=== PATIENT | male | born 1945 | race Caucasian/White ===

== ENCOUNTER 2018-09-18 17:36 | Inpatient (IN) | payer OTHER ==
[~2018-09-18] VITALS: Ht 182.9 cm; Wt 83.0 kg
[~2018-09-18 17:36] MED LIST: AMOX1TAB61 PO; ASCO500T3 PO; ASPI325T8 PO; ATOR40TA PO; BUDE10.2 IH; CHOL200074 PO; CLIN300C8 PO; GARL100T PO; GLUC1CAP48 PO; HYDR-2761 PO; LYSI500T PO; MULT-208 PO; OCUVITE SOFTGE1 EACH PO; OMEP20TA63 PO; SAW450CA7 PO; TIOT18CA IH; UBID200C7 PO; VITA1TAB49 PO; ZOLP5TAB PO
[2018-09-18 19:00] VITALS: BP 123/78
--- NOTE | 2018-09-18 19:00 | NUR ---
The patient, TITUS SHEPHERD, 73 y/o, M admitted by YARELI IRBY MD, was given written information regarding hospital policies, unit procedures and contact persons. Pt. was a direct admit from Dr. Irby's office. Pt. c/o of abdominal pain mainly when he ambulates. Ct done. Vital signs are stable and pt. is afebrile. Pt. accompanied by his , she has his valuables. Pt. is NPO @ midnight. Will continue to monitor.
[2018-09-18] MEDS ORDERED: HYDROmorphone 2 MG/ML VIAL IV PRN (19:15)
[2018-09-18] MEDS ORDERED: guaiFENesin DM 200MG/20MG 10 ML SYRUP PO PRN (19:15)
--- NOTE | 2018-09-18 19:23 | PDOC1 ---
History and Physical Date of Admission Date of Admission DATE: 09/18/18 TIME: 19:16 Identification/Chief Complaint Chief Complaint abdominal pain, cough Source Source: Patient History of Present Illness History of Present Illness Fernandez is a 73 yo gentleman three plus months post op ileo-colic resection for a perforated ileal diverticulum with abscess. Last week he played some golf and has had some abdominal pain he thought might be 2/2 pulled muscle. The pain worsened over the last couple of days, and he has had some fever. He was seen in the office earlier today, sent for a CT which showed some pneumoperitoneum. He is admitted for evaluation of same Past Medical History Cardiovascular: Hyperlipidemia CENTRAL NERVOUS SYSTEM: TIA, TIA GI: GERD Heme/Onc: No pertinent hx Hepatobiliary: No pertinent hx Psych: No pertinent hx Musculoskeletal: low back pain, Osteoarthritis Rheumatologic: No pertinent hx Infectious disease: No pertinent hx Renal/: No pertinent hx Endocrine: No pertinent hx Past Surgical History Past Surgical History: Appendectomy, Hernia Repair, Other (ileo-colic resection May of 2018) Family History Family History: Coronary Artery Disease, High Cholestrol, Adopted Social History ALCOHOL: none Drugs: None Current Medications Current Medications Current Medications Sodium Chloride 1,000 ml @ 100 mls/hr Q10H IV ; Start 09/18/18 at 19:07 Acetaminophen (Tylenol) 500 mg PRN Q4HRS PRN PO MILD PAIN / TEMP; Start at 19:15 Hydromorphone HCl (Dilaudid) 0.5 mg PRN Q3HRS PRN IV pain; Start 09/18/18 at 19: 15 Guaifenesin (Robitussin Dm) 10 ml PRN Q6HRS PRN PO COUGH; Start 09/18/18 at 19: 15; Status UNV Active Scripts Active Hydrocodone-Apap 5-325 (Hydrocodone Bit/Acetaminophen) 1 Each Tablet 1 Tab PO PRN Q6HRS PRN Reported Ambien (Zolpidem Tartrate) 5 Mg Tablet 1 Tab PO PRN QHS PRN L-Lysine (Lysine) 500 Mg Tablet 500 Mg PO DAILY Aspirin 325 Mg Tablet 1 Tab PO DAILY Ocuvite Softgel (Vit C/Vit E/Lutein/Min/[place]-3) 1 Each Capsule 1 Each PO DAILY Co Q-10 (Ubidecarenone) 200 Mg Capsule 200 Mg PO DAILY Vitamin D-3 (Cholecalciferol (Vitamin D3)) 2,000 Unit Capsule 3,000 Unit PO DAILY Ascorbic Acid 500 Mg Tablet 500 Mg PO DAILY B Complete (Vitamin B Complex) 1 Each Tablet 1 Each PO DAILY [place] ([place] Fruit) 450 Mg Capsule 2 Cap PO DAILY Garlic 100 Mg Tablet 100 Mg PO DAILY Glucosamine & Chondroitin Cap (Gluc 2KCL/Chondr/[place] Hy/Hy Ac) 1 Each Capsule 2 Each PO DAILY Multi-Day Vitamins (Multivitamin) 1 Each Tablet 1 Tab PO DAILY Prilosec Otc (Omeprazole Magnesium) 20 Mg Tablet.dr 1 Tab PO QODAY Symbicort 160-4.5 Mcg Inhaler (Budesonide/Formoterol Fumarate) 10.2 Gm Hfa.aer.ad 2 Puff IH BID Spiriva (Tiotropium [place]) 18 Mcg Cap.w.dev 1 Cap IH DAILY Lipitor (Atorvastatin Calcium) 40 Mg Tablet 1 Tab PO QHS Allergies Allergies: Coded Allergies: Penicillins (Verified Allergy, Intermediate, Hives, 06/21/18) Tolerates amoxicillin, ZOSYN ROS General: YES: Other (fever) Respiratory: YES: Cough Gastrointestinal: Yes Abdominal Pain Physical Exam General: Alert, Oriented X3, No acute distress HEENT: Atraumatic Lungs: Other (occasional ronchi) Abdomen: Soft, Other (diffusely TTP) Skin: Other (warm, dry) Labs Labs PND Images Images CXR and CT of abd/pelvis done earlier are reviewed VTE Prophylaxis Ordered VTE Prophylaxis Devices: Yes VTE Pharmacological Prophylaxi: No Assessment/Plan Assessment/Plan abdominal pain with CT evidence of some pneumoperitoneum hx of perforated distal ileal diverticulum with abscess baseline labs, serial exams YARELI ALEXANDER MD Sep 18, 2018 19:23
[2018-09-18 19:42] LABS: BASO % 0 % (0-3); EOS # 0.1 x10^3/uL (0.0-0.7); EOS % 0 % (0-3); HEMATOCRIT 43.9 % (39.0-53.0); HEMOGLOBIN 14.5 g/dL (13.0-17.5); LYMPH # 1.2 x10^3/uL (1.0-4.8); LYMPH % 8 % (24-48); MEAN CORPUSCULAR HEMOGLOBIN 28 pg (25-35); MEAN CORPUSCULAR HGB CONC 33 g/dL (31-37); MEAN CORPUSCULAR VOLUME 85 fL (79-100); MONO # 1.1 x10^3/uL (0.0-1.1); MONO % 7 % (0-9); NEUT # 12.7 x10^3uL (1.8-7.7); NEUT % 85 % (31-73); PLATELET COUNT 253 x10^3/uL (140-400); RED BLOOD COUNT 5.15 x10^6/uL (4.30-5.70); RED CELL DISTRIBUTION WIDTH 14.2 % (11.5-14.5)
[2018-09-18 19:52] LABS: CALCIUM 8.9 mg/dL (8.5-10.1); CREATININE 1.2 mg/dL (0.7-1.3); GFR 59.3; POTASSIUM 4.3 mmol/L (3.5-5.1)
[2018-09-18 19:56] LABS: % BANDS 2 % (0-9); % LYMPHS 12 % (24-48); % MONOS 5 % (0-10); % SEGS 81 % (35-66); PLT ESTIMATE ADEQUATE (ADEQUATE)
[2018-09-18] MEDS: IV NORMAL SALINE 1000ML BAG 1,000 ML IV SCH (20:42)
[2018-09-18 23:00] VITALS: BP 125/66
[2018-09-18] MEDS ORDERED: ZOLPIDEM 5 MG TABLET. PO PRN (23:15)
[2018-09-19 03:00] VITALS: BP 121/65
[2018-09-19 03:20] LABS: BASO # 0.1 x10^3/uL (0.0-0.2); BASO % 1 % (0-3); EOS % 0 % (0-3); HEMATOCRIT 40.5 % (39.0-53.0); HEMOGLOBIN 13.2 g/dL (13.0-17.5); LYMPH # 1.4 x10^3/uL (1.0-4.8); LYMPH % 10 % (24-48); MEAN CORPUSCULAR HEMOGLOBIN 28 pg (25-35); MEAN CORPUSCULAR HGB CONC 33 g/dL (31-37); MEAN CORPUSCULAR VOLUME 86 fL (79-100); MONO # 1.2 x10^3/uL (0.0-1.1); MONO % 9 % (0-9); NEUT % 80 % (31-73); PLATELET COUNT 247 x10^3/uL (140-400); RED BLOOD COUNT 4.69 x10^6/uL (4.30-5.70); RED CELL DISTRIBUTION WIDTH 14.2 % (11.5-14.5); WHITE BLOOD COUNT 13.7 x10^3/uL (4.0-11.0)
[2018-09-19 07:00] VITALS: BP 112/71
[2018-09-19] MEDS: IV NORMAL SALINE 1000ML BAG 1,000 ML IV SCH ×3 (09:09→20:56)
--- NOTE | 2018-09-19 10:26 | PDOC ---
SHAUNA ENGEL ILLUMINATOR 09/19/18 1026: SURGICAL PROGRESS NOTE Subjective pain is about the same no emesis Vital Signs Vital Signs Date Time Temp Pulse Resp B/P (MAP) Pulse Ox O2 Delivery O2 Flow Rate FiO2 09/19/18 07:05 Room Air 09/19/18 07:00 98.1 92 16 112/71 (85) 96 98.1 General: Alert, Oriented X3, Cooperative, No acute distress Abdomen: Soft, Other (TTP mid abdomen ) Labs Laboratory Tests Test 09/18/18 19:30 09/19/18 02:30 White Blood Count 15.0 x10^3/uL (4.0-11.0) 13.7 x10^3/uL (4.0-11.0) Red Blood Count 5.15 x10^6/uL (4.30-5.70) 4.69 x10^6/uL (4.30-5.70) Hemoglobin 14.5 g/dL (13.0-17.5) 13.2 g/dL (13.0-17.5) Hematocrit 43.9 % (39.0-53.0) 40.5 % (39.0-53.0) Mean Corpuscular Volume 85 fL (79-100) 86 fL (79-100) Mean Corpuscular Hemoglobin 28 pg (25-35) 28 pg (25-35) Mean Corpuscular Hemoglobin Concent 33 g/dL (31-37) 33 g/dL (31-37) Red Cell Distribution Width 14.2 % (11.5-14.5) 14.2 % (11.5-14.5) Platelet Count 253 x10^3/uL (140-400) 247 x10^3/uL (140-400) Neutrophils (%) (Auto) 85 % (31-73) 80 % (31-73) Lymphocytes (%) (Auto) 8 % (24-48) 10 % (24-48) Monocytes (%) (Auto) 7 % (0-9) 9 % (0-9) Eosinophils (%) (Auto) 0 % (0-3) 0 % (0-3) Basophils (%) (Auto) 0 % (0-3) 1 % (0-3) Neutrophils # (Auto) 12.7 x10^3uL (1.8-7.7) 11.0 x10^3uL (1.8-7.7) Lymphocytes # (Auto) 1.2 x10^3/uL (1.0-4.8) 1.4 x10^3/uL (1.0-4.8) Monocytes # (Auto) 1.1 x10^3/uL (0.0-1.1) 1.2 x10^3/uL (0.0-1.1) Eosinophils # (Auto) 0.1 x10^3/uL (0.0-0.7) 0.0 x10^3/uL (0.0-0.7) Basophils # (Auto) 0.0 x10^3/uL (0.0-0.2) 0.1 x10^3/uL (0.0-0.2) Segmented Neutrophils % 81 % (35-66) Band Neutrophils % 2 % (0-9) Lymphocytes % 12 % (24-48) Monocytes % 5 % (0-10) Platelet Estimate Adequate (ADEQUATE) Sodium Level 135 mmol/L (136-145) Potassium Level 4.3 mmol/L (3.5-5.1) Chloride Level 99 mmol/L (98-107) Carbon Dioxide Level 25 mmol/L (21-32) Anion Gap 11 (6-14) Blood Urea Nitrogen 14 mg/dL (8-26) Creatinine 1.2 mg/dL (0.7-1.3) Estimated GFR (Cockcroft-Gault) 59.3 Glucose Level 136 mg/dL (70-99) Lactic Acid Level 1.2 mmol/L (0.4-2.0) Calcium Level 8.9 mg/dL (8.5-10.1) Laboratory Tests Test 09/18/18 19:30 09/19/18 02:30 White Blood Count 15.0 x10^3/uL (4.0-11.0) 13.7 x10^3/uL (4.0-11.0) Red Blood Count 5.15 x10^6/uL (4.30-5.70) 4.69 x10^6/uL (4.30-5.70) Hemoglobin 14.5 g/dL (13.0-17.5) 13.2 g/dL (13.0-17.5) Hematocrit 43.9 % (39.0-53.0) 40.5 % (39.0-53.0) Mean Corpuscular Volume 85 fL (79-100) 86 fL (79-100) Mean Corpuscular Hemoglobin 28 pg (25-35) 28 pg (25-35) Mean Corpuscular Hemoglobin Concent 33 g/dL (31-37) 33 g/dL (31-37) Red Cell Distribution Width 14.2 % (11.5-14.5) 14.2 % (11.5-14.5) Platelet Count 253 x10^3/uL (140-400) 247 x10^3/uL (140-400) Neutrophils (%) (Auto) 85 % (31-73) 80 % (31-73) Lymphocytes (%) (Auto) 8 % (24-48) 10 % (24-48) Monocytes (%) (Auto) 7 % (0-9) 9 % (0-9) Eosinophils (%) (Auto) 0 % (0-3) 0 % (0-3) Basophils (%) (Auto) 0 % (0-3) 1 % (0-3) Neutrophils # (Auto) 12.7 x10^3uL (1.8-7.7) 11.0 x10^3uL (1.8-7.7) Lymphocytes # (Auto) 1.2 x10^3/uL (1.0-4.8) 1.4 x10^3/uL (1.0-4.8) Monocytes # (Auto) 1.1 x10^3/uL (0.0-1.1) 1.2 x10^3/uL (0.0-1.1) Eosinophils # (Auto) 0.1 x10^3/uL (0.0-0.7) 0.0 x10^3/uL (0.0-0.7) Basophils # (Auto) 0.0 x10^3/uL (0.0-0.2) 0.1 x10^3/uL (0.0-0.2) Segmented Neutrophils % 81 % (35-66) Band Neutrophils % 2 % (0-9) Lymphocytes % 12 % (24-48) Monocytes % 5 % (0-10) Platelet Estimate Adequate (ADEQUATE) Sodium Level 135 mmol/L (136-145) Potassium Level 4.3 mmol/L (3.5-5.1) Chloride Level 99 mmol/L (98-107) Carbon Dioxide Level 25 mmol/L (21-32) Anion Gap 11 (6-14) Blood Urea Nitrogen 14 mg/dL (8-26) Creatinine 1.2 mg/dL (0.7-1.3) Estimated GFR (Cockcroft-Gault) 59.3 Glucose Level 136 mg/dL (70-99) Lactic Acid Level 1.2 mmol/L (0.4-2.0) Calcium Level 8.9 mg/dL (8.5-10.1) Problem List pneumoperitoneum WBC 13.5 today, pain about the same will review with YARELI Melendez MD 09/19/18 1040: SURGICAL PROGRESS NOTE Assessment/Plan pt seen and examined appears comfortable just had formed stool has been afebrile since admission belly soft, some RUQ TTP reviewed CT with radiologist proximal colon (at the anastomosis) is inflamed, some calcific density (oral Ca+ + supplement?) continue gut rest, IV fluids, Abx ask ID to see SHAUNA ENGEL ILLUMINATOR Sep 19, 2018 10:26 YARELI ALEXANDER MD Sep 19, 2018 10:40
[2018-09-19 11:00] VITALS: BP 111/64
[2018-09-19] MEDS: ASPIRIN 325 MG TABLET PO SCH (11:07)
[2018-09-19] MEDS: IPRATRPIUM/ALBUTEROL 0.5/2.5MG 3 ML NEBU. NEB SCH ×3 (12:00→20:00)
[2018-09-19] MEDS: BUDESONIDE 0.5 MG/2 ML NEBU. NEB SCH ×2 (12:00→20:00)
--- NOTE | 2018-09-19 12:10 | PDOC ---
Infectious Disease Note Vital Sign Vital Signs Vital Signs Date Time Temp Pulse Resp B/P (MAP) Pulse Ox O2 Delivery O2 Flow Rate FiO2 09/19/18 11:00 98.2 89 16 111/64 (80) 95 Room Air 98.2 Labs Lab Laboratory Tests Test 09/18/18 19:30 09/19/18 02:30 White Blood Count 15.0 x10^3/uL (4.0-11.0) 13.7 x10^3/uL (4.0-11.0) Red Blood Count 5.15 x10^6/uL (4.30-5.70) 4.69 x10^6/uL (4.30-5.70) Hemoglobin 14.5 g/dL (13.0-17.5) 13.2 g/dL (13.0-17.5) Hematocrit 43.9 % (39.0-53.0) 40.5 % (39.0-53.0) Mean Corpuscular Volume 85 fL (79-100) 86 fL (79-100) Mean Corpuscular Hemoglobin 28 pg (25-35) 28 pg (25-35) Mean Corpuscular Hemoglobin Concent 33 g/dL (31-37) 33 g/dL (31-37) Red Cell Distribution Width 14.2 % (11.5-14.5) 14.2 % (11.5-14.5) Platelet Count 253 x10^3/uL (140-400) 247 x10^3/uL (140-400) Neutrophils (%) (Auto) 85 % (31-73) 80 % (31-73) Lymphocytes (%) (Auto) 8 % (24-48) 10 % (24-48) Monocytes (%) (Auto) 7 % (0-9) 9 % (0-9) Eosinophils (%) (Auto) 0 % (0-3) 0 % (0-3) Basophils (%) (Auto) 0 % (0-3) 1 % (0-3) Neutrophils # (Auto) 12.7 x10^3uL (1.8-7.7) 11.0 x10^3uL (1.8-7.7) Lymphocytes # (Auto) 1.2 x10^3/uL (1.0-4.8) 1.4 x10^3/uL (1.0-4.8) Monocytes # (Auto) 1.1 x10^3/uL (0.0-1.1) 1.2 x10^3/uL (0.0-1.1) Eosinophils # (Auto) 0.1 x10^3/uL (0.0-0.7) 0.0 x10^3/uL (0.0-0.7) Basophils # (Auto) 0.0 x10^3/uL (0.0-0.2) 0.1 x10^3/uL (0.0-0.2) Segmented Neutrophils % 81 % (35-66) Band Neutrophils % 2 % (0-9) Lymphocytes % 12 % (24-48) Monocytes % 5 % (0-10) Platelet Estimate Adequate (ADEQUATE) Sodium Level 135 mmol/L (136-145) Potassium Level 4.3 mmol/L (3.5-5.1) Chloride Level 99 mmol/L (98-107) Carbon Dioxide Level 25 mmol/L (21-32) Anion Gap 11 (6-14) Blood Urea Nitrogen 14 mg/dL (8-26) Creatinine 1.2 mg/dL (0.7-1.3) Estimated GFR (Cockcroft-Gault) 59.3 Glucose Level 136 mg/dL (70-99) Lactic Acid Level 1.2 mmol/L (0.4-2.0) Calcium Level 8.9 mg/dL (8.5-10.1) Micro CT 09/18 IMPRESSION: 1. Trace amount of pneumoperitoneum, nonspecific and may be secondary to perforated viscus or peritoneal dialysis. Clinically correlate if patient had any recent dialysis session. 2. Layering high attenuating material in the distal small bowel and transverse colon may be secondary to previous ingested contrast material or blood products. Correlate if patient had oral contrast. 3. Circumferential wall thickening of the small bowel loops and right lower quadrant mesenteric Inflammatory changes may be secondary to enteritis. 06/09 ANAEROBIC-AEROBIC CULTURE Final Final report ANAEROBIC RES 1 Final Comment No anaerobic growth in 72 hours. AEROBIC CULT Final Final report AEROBIC RES 1 Final Escherichia coli Scant growth AEROBIC RES 2 Final Mixed skin courtney 1+ ANTIMICROBIAL SUSCEPTIBILITY Final Comment S = Susceptible; I = Intermediate; R = Resistant P = Positive; N = Negative MICS are expressed in micrograms per mL Antibiotic RSLT#1 RSLT#2 RSLT#3 RSLT#4 Amoxicillin/Clavulanic Acid S =4 Ampicillin I =16 Cefepime S<=0.12 Ceftriaxone S<=0.25 Cefuroxime I =16 Ciprofloxacin R>=4 Ertapenem S<=0.12 Gentamicin S<=1 Imipenem S =1 Levofloxacin R>=8 Meropenem S<=0.25 CONTINUED ON NEXT PAGE RUN DATE: 06/14/18 PAGE 2 RUN TIME: 9796 [facility] [address] [place] [address] Perez Lilly M.D., Twisting Operator SPEC: [id number] PATIENT: TITUS SHEPHERD [id number] ( Continued) Procedure Result ANTIMICROBIAL SUSCEPTIBILITY Final (continued) Piperacillin/Tazobactam S<=4 Tetracycline R>=16 Tobramycin S<=1 Trimethoprim/Sulfa R>=320 GRAM STAIN Final Final report GRAM STAIN RES 1 Final Comment Many white blood cells. GRAM STAIN RES 2 Final Comment Many gram positive rods. Objective Assessment Leukocytosis SHIRA PCN allergy Colitis Plan Plan of Care Cont Flagyl Begin Zosyn/Fluconazole F/u labs in am and cults D/w Dr. Irby earlier Thank you # [phone] LOWELL PRADHAN MD Sep 19, 2018 12:10
[2018-09-19] MEDS: PIPERACILLIN/TAZOBACTAM 3.375 GM in IV NORMAL SALINE 50ML 50 ML IV SCH ×3 (13:22→23:48)
--- NOTE | 2018-09-19 13:48 | NUR ---
SW following for discharge planning. Discussed with RN, pt currently on abx and NPO, possibility of surgery. Pt is from home with . SW will continue to follow.
[2018-09-19] MEDS: FLUCONAZOLE 400MG/200ML PREMIX 200 ML IV SCH (14:41)
[2018-09-19 15:00] VITALS: BP 120/60
[2018-09-19 19:00] VITALS: BP 133/74
[2018-09-19] MEDS: ATORVASTATIN CALCIUM 40 MG TABLET. PO SCH (20:53)
[2018-09-19] MEDS ORDERED: NON FORMULARY ITEM (Budesonide/Formoterol Fumarate (Symbicort 160-4.5 Mcg Inhaler) 2 PUFF) IH SCH (21:00)
[2018-09-19 23:00] VITALS: BP 115/57
[2018-09-19] MEDS: ACETAMINOPHEN 500 MG TABLET PO PRN (23:39)
--- NOTE | 2018-09-20 02:04 | CONS ---
DATE OF CONSULTATION: 09/19/2018 Infectious Disease Consultation REQUESTING PHYSICIAN: Dane Irby MD REASON FOR CONSULTATION: Colitis. 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 At that time, he grew out an E. coli. The E. coli was resistant to levofloxacin, ciprofloxacin, intermediate to ampicillin, cefuroxime and resistant to tetracycline and Bactrim, but otherwise sensitive. Gram-positive rods were seen on Gram stain, but also did not grow out. He subsequently was discharged home on Augmentin. He states he finished the Augmentin after 10 days. Since that time, he has been using fairly well. He states he has been doing sit-ups up to 100 cigarettes a day and doing lot of stretching in trying to get in training for golf. Last Tuesday, he went and hit some golf balls. Denies any excessive force used. Two days later on Tuesday, he began to develop some abdominal pain and felt weak with decreased appetite. No fever or chills or sweats, but over the next several days, the pain worsened and he got to the point where he had to contact Dr. Irby and he underwent a CT scan on the , which showed pneumoperitoneum and layering high attenuated material in the distal small bowel and transverse colon and circumferential wall thickening of the small bowel loops, right lower quadrant mesenteric inflammation secondary to enteritis. He was not having any diarrhea. Denies any blood in his stools. He has no cramping and he has not been on any antibiotics by mouth since June. Two weeks ago underwent cataract procedure and had local steroids and local antibiotic drops at that time. PAST MEDICAL HISTORY: Positive for TIAs, gastroesophageal reflux disease, osteoarthritis above-mentioned abdominal perforation. He has had a previous foot wound with group A strep, Bacteroides and Klebsiella oxytoca. He does have history of pneumonia. PAST SURGICAL HISTORY: Positive for the appendectomy, hernia repair, and the ileocolic resection as mentioned above. REVIEW OF SYSTEMS: Otherwise negative except for mentioned above. ALLERGIES: Listed as PENICILLIN, but has tolerated Augmentin. SOCIAL HISTORY: He is . No tobacco or alcohol. FAMILY HISTORY: Positive for heart disease, high cholesterol and he is adopted. CURRENT MEDICATIONS: Include levofloxacin, metronidazole, aspirin, Lipitor, Pulmicort, Protonix. PHYSICAL EXAMINATION: VITAL SIGNS: His temperature is 98.2, pulse 89, respirations 16, blood pressure 111/64, satting 95% on room air. CONSTITUTIONAL: He is lying down. He is comfortable. He is in no acute distress. HEENT: Pupils equal and reactive. Oral cavity: Pharynx is clear. NECK: Supple with good range of motion. LUNGS: Clear to auscultation bilaterally. HEART: S1, S2. ABDOMEN: Soft. It is tender. There is little bit guarding. He has a well-healed incision. EXTREMITIES: No clubbing, cyanosis or gross edema. SKIN: Warm to touch without signs of rash. NEUROLOGIC: Alert and oriented, cooperative. IVs sites are clean. PSYCHIATRIC: Affect is pleasant. LABORATORY VALUES: White count on admission 15, today is 13.7, hemoglobin 13.2, platelets of 247 and 2 bands on presentation, currently is 80 segs. Creatinine of 1.2, glucose is 136. RADIOLOGY: Reviewed in history of present illness. IMPRESSION: 1. Leukocytosis. 2. Acute kidney injury. 3. PENICILLIN allergy. 4. Colitis. RECOMMENDATIONS: We will continue the Flagyl for now with the colitis, although he does not have any diarrhea. We will begin Zosyn, fluconazole. Follow up labs in the morning. Follow up on cultures. I did discuss the case briefly with Dr. Irby earlier. Thank you for allowing me to participate in the patient's care. Should you have any further concerns or questions, please do not hesitate to contact me. LOWELL PRADHAN MD DR: STONE/kin JOB#: [id number] / [id number]
[2018-09-20 03:00] VITALS: BP 137/74
[2018-09-20 03:34] LABS: BASO % 0 % (0-3); EOS # 0.1 x10^3/uL (0.0-0.7); EOS % 1 % (0-3); HEMATOCRIT 37.7 % (39.0-53.0); HEMOGLOBIN 12.5 g/dL (13.0-17.5); LYMPH # 1.3 x10^3/uL (1.0-4.8); LYMPH % 11 % (24-48); MEAN CORPUSCULAR HEMOGLOBIN 29 pg (25-35); MEAN CORPUSCULAR HGB CONC 33 g/dL (31-37); MEAN CORPUSCULAR VOLUME 86 fL (79-100); MONO # 1.1 x10^3/uL (0.0-1.1); MONO % 10 % (0-9); NEUT # 8.5 x10^3uL (1.8-7.7); NEUT % 78 % (31-73); PLATELET COUNT 268 x10^3/uL (140-400); RED BLOOD COUNT 4.39 x10^6/uL (4.30-5.70); RED CELL DISTRIBUTION WIDTH 13.7 % (11.5-14.5)
[2018-09-20 03:54] LABS: ALBUMIN 2.5 g/dL (3.4-5.0); ALBUMIN/GLOBULIN RATIO 0.6 (1.0-1.7); CALCIUM 8.6 mg/dL (8.5-10.1); CREATININE 1.3 mg/dL (0.7-1.3); GFR 54.1; POTASSIUM 3.7 mmol/L (3.5-5.1); TOTAL BILIRUBIN 0.7 mg/dL (0.2-1.0); TOTAL PROTEIN 6.5 g/dL (6.4-8.2)
[2018-09-20] MEDS: PIPERACILLIN/TAZOBACTAM 3.375 GM in IV NORMAL SALINE 50ML 50 ML IV SCH ×4 (05:56→23:58)
[2018-09-20 07:00] VITALS: BP 125/72
[2018-09-20] MEDS: PANTOPRAZOLE 40 MG TABLET.DR. PO SCH (07:10)
[2018-09-20] MEDS: BUDESONIDE 0.5 MG/2 ML NEBU. NEB SCH ×2 (07:24→19:56)
[2018-09-20] MEDS: IPRATRPIUM/ALBUTEROL 0.5/2.5MG 3 ML NEBU. NEB SCH ×4 (07:24→19:56)
[2018-09-20] MEDS ORDERED: NON FORMULARY ITEM (Tiotropium Bromide (Spiriva) 1 CAP) IH SCH (09:00)
[2018-09-20] MEDS ORDERED: SAW PALMETTO FRUIT PO SCH (09:00)
[2018-09-20] MEDS ORDERED: NON FORMULARY ITEM (Gluc 2KCL/Chondr/Coll Hy/Hy Ac (Glucosamine & Chondroitin Cap) 2 EACH) PO SCH (09:00)
[2018-09-20] MEDS: ASPIRIN 325 MG TABLET PO SCH (09:20)
--- NOTE | 2018-09-20 09:33 | PDOC ---
SURGICAL PROGRESS NOTE Subjective up to the side of the bed on his way to the bathroom at bedside Manuel says he's hungry "tired of feeling tired" pain about the same, denies n/v, had a small stool last evening Vital Signs Vital Signs Date Time Temp Pulse Resp B/P (MAP) Pulse Ox O2 Delivery O2 Flow Rate FiO2 09/20/18 08:30 Room Air 09/20/18 07:00 99.0 66 18 125/72 (89) 98 99.0 I&O Intake and Output 09/20/18 06:59 Intake Total 100 ml Output Total 775 ml Balance -675 ml Intake IV Total 100 ml Output Urine Total 775 ml # Voids 2 # Bowel Movements 1 PATIENT HAS A KUMAR: No General: Alert, Oriented X3, No acute distress Labs Laboratory Tests Test 09/18/18 19:30 09/19/18 02:30 09/20/18 03:10 White Blood Count 15.0 x10^3/uL (4.0-11.0) 13.7 x10^3/uL (4.0-11.0) 11.0 x10^3/uL (4.0-11.0) Red Blood Count 5.15 x10^6/uL (4.30-5.70) 4.69 x10^6/uL (4.30-5.70) 4.39 x10^6/uL (4.30-5.70) Hemoglobin 14.5 g/dL (13.0-17.5) 13.2 g/dL (13.0-17.5) 12.5 g/dL (13.0-17.5) Hematocrit 43.9 % (39.0-53.0) 40.5 % (39.0-53.0) 37.7 % (39.0-53.0) Mean Corpuscular Volume 85 fL (79-100) 86 fL (79-100) 86 fL (79-100) Mean Corpuscular Hemoglobin 28 pg (25-35) 28 pg (25-35) 29 pg (25-35) Mean Corpuscular Hemoglobin Concent 33 g/dL (31-37) 33 g/dL (31-37) 33 g/dL (31-37) Red Cell Distribution Width 14.2 % (11.5-14.5) 14.2 % (11.5-14.5) 13.7 % (11.5-14.5) Platelet Count 253 x10^3/uL (140-400) 247 x10^3/uL (140-400) 268 x10^3/uL (140-400) Neutrophils (%) (Auto) 85 % (31-73) 80 % (31-73) 78 % (31-73) Lymphocytes (%) (Auto) 8 % (24-48) 10 % (24-48) 11 % (24-48) Monocytes (%) (Auto) 7 % (0-9) 9 % (0-9) 10 % (0-9) Eosinophils (%) (Auto) 0 % (0-3) 0 % (0-3) 1 % (0-3) Basophils (%) (Auto) 0 % (0-3) 1 % (0-3) 0 % (0-3) Neutrophils # (Auto) 12.7 x10^3uL (1.8-7.7) 11.0 x10^3uL (1.8-7.7) 8.5 x10^3uL (1.8-7.7) Lymphocytes # (Auto) 1.2 x10^3/uL (1.0-4.8) 1.4 x10^3/uL (1.0-4.8) 1.3 x10^3/uL (1.0-4.8) Monocytes # (Auto) 1.1 x10^3/uL (0.0-1.1) 1.2 x10^3/uL (0.0-1.1) 1.1 x10^3/uL (0.0-1.1) Eosinophils # (Auto) 0.1 x10^3/uL (0.0-0.7) 0.0 x10^3/uL (0.0-0.7) 0.1 x10^3/uL (0.0-0.7) Basophils # (Auto) 0.0 x10^3/uL (0.0-0.2) 0.1 x10^3/uL (0.0-0.2) 0.0 x10^3/uL (0.0-0.2) Segmented Neutrophils % 81 % (35-66) Band Neutrophils % 2 % (0-9) Lymphocytes % 12 % (24-48) Monocytes % 5 % (0-10) Platelet Estimate Adequate (ADEQUATE) Sodium Level 135 mmol/L (136-145) 135 mmol/L (136-145) Potassium Level 4.3 mmol/L (3.5-5.1) 3.7 mmol/L (3.5-5.1) Chloride Level 99 mmol/L (98-107) 100 mmol/L (98-107) Carbon Dioxide Level 25 mmol/L (21-32) 23 mmol/L (21-32) Anion Gap 11 (6-14) 12 (6-14) Blood Urea Nitrogen 14 mg/dL (8-26) 14 mg/dL (8-26) Creatinine 1.2 mg/dL (0.7-1.3) 1.3 mg/dL (0.7-1.3) Estimated GFR (Cockcroft-Gault) 59.3 54.1 Glucose Level 136 mg/dL (70-99) 106 mg/dL (70-99) Lactic Acid Level 1.2 mmol/L (0.4-2.0) Calcium Level 8.9 mg/dL (8.5-10.1) 8.6 mg/dL (8.5-10.1) BUN/Creatinine Ratio 11 (6-20) Total Bilirubin 0.7 mg/dL (0.2-1.0) Aspartate Amino Transf (AST/SGOT) 12 U/L (15-37) Alanine Aminotransferase (ALT/SGPT) 15 U/L (16-63) Alkaline Phosphatase 76 U/L (46-116) Total Protein 6.5 g/dL (6.4-8.2) Albumin 2.5 g/dL (3.4-5.0) Albumin/Globulin Ratio 0.6 (1.0-1.7) Laboratory Tests Test 09/20/18 03:10 White Blood Count 11.0 x10^3/uL (4.0-11.0) Red Blood Count 4.39 x10^6/uL (4.30-5.70) Hemoglobin 12.5 g/dL (13.0-17.5) Hematocrit 37.7 % (39.0-53.0) Mean Corpuscular Volume 86 fL (79-100) Mean Corpuscular Hemoglobin 29 pg (25-35) Mean Corpuscular Hemoglobin Concent 33 g/dL (31-37) Red Cell Distribution Width 13.7 % (11.5-14.5) Platelet Count 268 x10^3/uL (140-400) Neutrophils (%) (Auto) 78 % (31-73) Lymphocytes (%) (Auto) 11 % (24-48) Monocytes (%) (Auto) 10 % (0-9) Eosinophils (%) (Auto) 1 % (0-3) Basophils (%) (Auto) 0 % (0-3) Neutrophils # (Auto) 8.5 x10^3uL (1.8-7.7) Lymphocytes # (Auto) 1.3 x10^3/uL (1.0-4.8) Monocytes # (Auto) 1.1 x10^3/uL (0.0-1.1) Eosinophils # (Auto) 0.1 x10^3/uL (0.0-0.7) Basophils # (Auto) 0.0 x10^3/uL (0.0-0.2) Sodium Level 135 mmol/L (136-145) Potassium Level 3.7 mmol/L (3.5-5.1) Chloride Level 100 mmol/L (98-107) Carbon Dioxide Level 23 mmol/L (21-32) Anion Gap 12 (6-14) Blood Urea Nitrogen 14 mg/dL (8-26) Creatinine 1.3 mg/dL (0.7-1.3) Estimated GFR (Cockcroft-Gault) 54.1 BUN/Creatinine Ratio 11 (6-20) Glucose Level 106 mg/dL (70-99) Calcium Level 8.6 mg/dL (8.5-10.1) Total Bilirubin 0.7 mg/dL (0.2-1.0) Aspartate Amino Transf (AST/SGOT) 12 U/L (15-37) Alanine Aminotransferase (ALT/SGPT) 15 U/L (16-63) Alkaline Phosphatase 76 U/L (46-116) Total Protein 6.5 g/dL (6.4-8.2) Albumin 2.5 g/dL (3.4-5.0) Albumin/Globulin Ratio 0.6 (1.0-1.7) WBC normal, albumin low Assessment/Plan pneumoperitoneum colitis start PPN, offer clears, follow labs repeat CT in next 24-48 hrs d/w pt and his YARELI ALEXANDER MD Sep 20, 2018 09:33
[2018-09-20] MEDS: AMINO AC 3%/ELECTROLYTE/GLYCER 1,000 ML IV SCH ×2 (10:12→21:06)
--- NOTE | 2018-09-20 10:50 | NUR ---
SW following. Discussed with RN, pt has upgraded to clear liquids today as passing gas. SW will continue to follow for any discharge planning needs.
[2018-09-20 11:00] VITALS: BP 115/71
--- NOTE | 2018-09-20 13:06 | PDOC ---
Infectious Disease Note Subjective Subjective Doing ok. Had some loose stool earlier No F/C/s/N/V/SOA/Rash Vital Sign Vital Signs Vital Signs Date Time Temp Pulse Resp B/P (MAP) Pulse Ox O2 Delivery O2 Flow Rate FiO2 09/20/18 11:00 98.2 71 18 115/71 (86) 95 Room Air 98.2 Physical Exam PHYSICAL EXAM CONSTITUTIONAL: He is lying down. He is comfortable. He is in no acute distress. HEENT: Pupils equal and reactive. Oral cavity: Pharynx is clear. NECK: Supple with good range of motion. LUNGS: Clear to auscultation bilaterally. HEART: S1, S2. ABDOMEN: Soft. It is tender. There is little bit guarding. He has a well-healed incision. EXTREMITIES: No clubbing, cyanosis or gross edema. SKIN: Warm to touch without signs of rash. NEUROLOGIC: Alert and oriented, cooperative. IVs sites are clean. PSYCHIATRIC: Affect is pleasant. Labs Lab Laboratory Tests Test 09/20/18 03:10 White Blood Count 11.0 x10^3/uL (4.0-11.0) Red Blood Count 4.39 x10^6/uL (4.30-5.70) Hemoglobin 12.5 g/dL (13.0-17.5) Hematocrit 37.7 % (39.0-53.0) Mean Corpuscular Volume 86 fL (79-100) Mean Corpuscular Hemoglobin 29 pg (25-35) Mean Corpuscular Hemoglobin Concent 33 g/dL (31-37) Red Cell Distribution Width 13.7 % (11.5-14.5) Platelet Count 268 x10^3/uL (140-400) Neutrophils (%) (Auto) 78 % (31-73) Lymphocytes (%) (Auto) 11 % (24-48) Monocytes (%) (Auto) 10 % (0-9) Eosinophils (%) (Auto) 1 % (0-3) Basophils (%) (Auto) 0 % (0-3) Neutrophils # (Auto) 8.5 x10^3uL (1.8-7.7) Lymphocytes # (Auto) 1.3 x10^3/uL (1.0-4.8) Monocytes # (Auto) 1.1 x10^3/uL (0.0-1.1) Eosinophils # (Auto) 0.1 x10^3/uL (0.0-0.7) Basophils # (Auto) 0.0 x10^3/uL (0.0-0.2) Sodium Level 135 mmol/L (136-145) Potassium Level 3.7 mmol/L (3.5-5.1) Chloride Level 100 mmol/L (98-107) Carbon Dioxide Level 23 mmol/L (21-32) Anion Gap 12 (6-14) Blood Urea Nitrogen 14 mg/dL (8-26) Creatinine 1.3 mg/dL (0.7-1.3) Estimated GFR (Cockcroft-Gault) 54.1 BUN/Creatinine Ratio 11 (6-20) Glucose Level 106 mg/dL (70-99) Calcium Level 8.6 mg/dL (8.5-10.1) Total Bilirubin 0.7 mg/dL (0.2-1.0) Aspartate Amino Transf (AST/SGOT) 12 U/L (15-37) Alanine Aminotransferase (ALT/SGPT) 15 U/L (16-63) Alkaline Phosphatase 76 U/L (46-116) Total Protein 6.5 g/dL (6.4-8.2) Albumin 2.5 g/dL (3.4-5.0) Albumin/Globulin Ratio 0.6 (1.0-1.7) Micro CT 09/18 IMPRESSION: 1. Trace amount of pneumoperitoneum, nonspecific and may be secondary to perforated viscus or peritoneal dialysis. Clinically correlate if patient had any recent dialysis session. 2. Layering high attenuating material in the distal small bowel and transverse colon may be secondary to previous ingested contrast material or blood products. Correlate if patient had oral contrast. 3. Circumferential wall thickening of the small bowel loops and right lower quadrant mesenteric Inflammatory changes may be secondary to enteritis. 06/09 ANAEROBIC-AEROBIC CULTURE Final Final report ANAEROBIC RES 1 Final Comment No anaerobic growth in 72 hours. AEROBIC CULT Final Final report AEROBIC RES 1 Final Escherichia coli Scant growth AEROBIC RES 2 Final Mixed skin courtney 1+ ANTIMICROBIAL SUSCEPTIBILITY Final Comment S = Susceptible; I = Intermediate; R = Resistant P = Positive; N = Negative MICS are expressed in micrograms per mL Antibiotic RSLT#1 RSLT#2 RSLT#3 RSLT#4 Amoxicillin/Clavulanic Acid S =4 Ampicillin I =16 Cefepime S<=0.12 Ceftriaxone S<=0.25 Cefuroxime I =16 Ciprofloxacin R>=4 Ertapenem S<=0.12 Gentamicin S<=1 Imipenem S =1 Levofloxacin R>=8 Meropenem S<=0.25 CONTINUED ON NEXT PAGE RUN DATE: 06/14/18 PAGE 2 RUN TIME: 6546 [facility] [address] [place] [address] Perez Lilly M.D., Actuary SPEC: [id number] PATIENT: TITUS SHEPHERD [id number] ( Continued) Procedure Result ANTIMICROBIAL SUSCEPTIBILITY Final (continued) Piperacillin/Tazobactam S<=4 Tetracycline R>=16 Tobramycin S<=1 Trimethoprim/Sulfa R>=320 GRAM STAIN Final Final report GRAM STAIN RES 1 Final Comment Many white blood cells. GRAM STAIN RES 2 Final Comment Many gram positive rods. Objective Assessment Leukocytosis - better SHIRA PCN allergy Colitis Plan Plan of Care Cont Flagyl/ Zosyn/Fluconazole F/u labs in am and cults Check C-diff D/w nursing and LOWELL PRADHAN MD Sep 20, 2018 13:06
[2018-09-20] MEDS: FLUCONAZOLE 400MG/200ML PREMIX 200 ML IV SCH (13:59)
[2018-09-20 15:00] VITALS: BP 104/57
[2018-09-20] MEDS: IV NORMAL SALINE 1000ML BAG 1,000 ML IV SCH (15:11)
[2018-09-20 19:00] VITALS: BP 139/70
[2018-09-20] MEDS: ATORVASTATIN CALCIUM 40 MG TABLET. PO SCH (21:00)
[2018-09-20 23:00] VITALS: BP 104/57
[2018-09-20] MEDS: ZOLPIDEM 5 MG TABLET. PO PRN (23:00)
[2018-09-21 03:00] VITALS: BP 112/70
[2018-09-21 05:43] LABS: BASO % 0 % (0-3); EOS # 0.1 x10^3/uL (0.0-0.7); EOS % 2 % (0-3); HEMATOCRIT 35.3 % (39.0-53.0); HEMOGLOBIN 11.7 g/dL (13.0-17.5); LYMPH # 1.1 x10^3/uL (1.0-4.8); LYMPH % 13 % (24-48); MEAN CORPUSCULAR HEMOGLOBIN 28 pg (25-35); MEAN CORPUSCULAR HGB CONC 33 g/dL (31-37); MEAN CORPUSCULAR VOLUME 85 fL (79-100); MONO # 0.8 x10^3/uL (0.0-1.1); MONO % 10 % (0-9); NEUT % 75 % (31-73); PLATELET COUNT 222 x10^3/uL (140-400); RED BLOOD COUNT 4.15 x10^6/uL (4.30-5.70); RED CELL DISTRIBUTION WIDTH 13.5 % (11.5-14.5)
[2018-09-21] MEDS: PIPERACILLIN/TAZOBACTAM 3.375 GM in IV NORMAL SALINE 50ML 50 ML IV SCH ×2 (05:58→12:30)
[2018-09-21 06:09] LABS: CALCIUM 8.3 mg/dL (8.5-10.1); GFR 73.2; POTASSIUM 3.3 mmol/L (3.5-5.1)
[2018-09-21 07:00] VITALS: BP 129/62
[2018-09-21] MEDS: BUDESONIDE 0.5 MG/2 ML NEBU. NEB SCH (08:00)
[2018-09-21] MEDS: IPRATRPIUM/ALBUTEROL 0.5/2.5MG 3 ML NEBU. NEB SCH ×3 (08:00→16:00)
[2018-09-21] MEDS: ASPIRIN 325 MG TABLET PO SCH (08:36)
[2018-09-21] MEDS: ACETAMINOPHEN 500 MG TABLET PO PRN (08:41)
[2018-09-21] MEDS: AMINO AC 3%/ELECTROLYTE/GLYCER 1,000 ML IV SCH ×3 (10:30→23:12)
--- NOTE | 2018-09-21 10:57 | NUR ---
SW following. Discussed with RN, pt slowly advancing diet. Possible discharge today or tomorrow. SW will continue to follow.
[2018-09-21 11:00] VITALS: BP 121/58
--- NOTE | 2018-09-21 11:01 | PDOC ---
Infectious Disease Note Subjective Subjective Doing ok. Had some loose stool but no cramps/bloating No F/C/s/N/V/SOA/Rash ROS ROS o/w neg Vital Sign Vital Signs Vital Signs Date Time Temp Pulse Resp B/P (MAP) Pulse Ox O2 Delivery O2 Flow Rate FiO2 09/21/18 08:15 Room Air 09/21/18 07:00 98.1 55 17 129/62 (84) 99 98.1 Physical Exam PHYSICAL EXAM CONSTITUTIONAL: He is lying down. He is comfortable. He is in no acute distress. HEENT: Pupils equal and reactive. Oral cavity: Pharynx is clear. NECK: Supple with good range of motion. LUNGS: Clear to auscultation bilaterally. HEART: S1, S2. ABDOMEN: Soft. It is less tender He has a well-healed incision. EXTREMITIES: No clubbing, cyanosis or gross edema. SKIN: Warm to touch without signs of rash. NEUROLOGIC: Alert and oriented, cooperative. IVs sites are clean. PSYCHIATRIC: Affect is pleasant. Labs Lab Laboratory Tests Test 09/21/18 04:55 White Blood Count 8.0 x10^3/uL (4.0-11.0) Red Blood Count 4.15 x10^6/uL (4.30-5.70) Hemoglobin 11.7 g/dL (13.0-17.5) Hematocrit 35.3 % (39.0-53.0) Mean Corpuscular Volume 85 fL (79-100) Mean Corpuscular Hemoglobin 28 pg (25-35) Mean Corpuscular Hemoglobin Concent 33 g/dL (31-37) Red Cell Distribution Width 13.5 % (11.5-14.5) Platelet Count 222 x10^3/uL (140-400) Neutrophils (%) (Auto) 75 % (31-73) Lymphocytes (%) (Auto) 13 % (24-48) Monocytes (%) (Auto) 10 % (0-9) Eosinophils (%) (Auto) 2 % (0-3) Basophils (%) (Auto) 0 % (0-3) Neutrophils # (Auto) 6.0 x10^3uL (1.8-7.7) Lymphocytes # (Auto) 1.1 x10^3/uL (1.0-4.8) Monocytes # (Auto) 0.8 x10^3/uL (0.0-1.1) Eosinophils # (Auto) 0.1 x10^3/uL (0.0-0.7) Basophils # (Auto) 0.0 x10^3/uL (0.0-0.2) Sodium Level 136 mmol/L (136-145) Potassium Level 3.3 mmol/L (3.5-5.1) Chloride Level 101 mmol/L (98-107) Carbon Dioxide Level 22 mmol/L (21-32) Anion Gap 13 (6-14) Blood Urea Nitrogen 14 mg/dL (8-26) Creatinine 1.0 mg/dL (0.7-1.3) Estimated GFR (Cockcroft-Gault) 73.2 Glucose Level 116 mg/dL (70-99) Calcium Level 8.3 mg/dL (8.5-10.1) Micro CT 09/18 IMPRESSION: 1. Trace amount of pneumoperitoneum, nonspecific and may be secondary to perforated viscus or peritoneal dialysis. Clinically correlate if patient had any recent dialysis session. 2. Layering high attenuating material in the distal small bowel and transverse colon may be secondary to previous ingested contrast material or blood products. Correlate if patient had oral contrast. 3. Circumferential wall thickening of the small bowel loops and right lower quadrant mesenteric Inflammatory changes may be secondary to enteritis. 06/09 ANAEROBIC-AEROBIC CULTURE Final Final report ANAEROBIC RES 1 Final Comment No anaerobic growth in 72 hours. AEROBIC CULT Final Final report AEROBIC RES 1 Final Escherichia coli Scant growth AEROBIC RES 2 Final Mixed skin courtney 1+ ANTIMICROBIAL SUSCEPTIBILITY Final Comment S = Susceptible; I = Intermediate; R = Resistant P = Positive; N = Negative MICS are expressed in micrograms per mL Antibiotic RSLT#1 RSLT#2 RSLT#3 RSLT#4 Amoxicillin/Clavulanic Acid S =4 Ampicillin I =16 Cefepime S<=0.12 Ceftriaxone S<=0.25 Cefuroxime I =16 Ciprofloxacin R>=4 Ertapenem S<=0.12 Gentamicin S<=1 Imipenem S =1 Levofloxacin R>=8 Meropenem S<=0.25 CONTINUED ON NEXT PAGE RUN DATE: 06/14/18 PAGE 2 RUN TIME: 5561 [facility] [address] [place] [address] Perez Lilly M.D., Assembler Engine SPEC: [id number] PATIENT: TITUS SHEPHERD [id number] ( Continued) Procedure Result ANTIMICROBIAL SUSCEPTIBILITY Final (continued) Piperacillin/Tazobactam S<=4 Tetracycline R>=16 Tobramycin S<=1 Trimethoprim/Sulfa R>=320 GRAM STAIN Final Final report GRAM STAIN RES 1 Final Comment Many white blood cells. GRAM STAIN RES 2 Final Comment Many gram positive rods. Objective Assessment Leukocytosis - better SHIRA PCN allergy Colitis - f/u c-diff Plan Plan of Care Cont Flagyl/ Zosyn/Fluconazole F/u labs in am and cults Check C-diff F/u CT 09/22 D/w nursing and LOWELL PRADHAN MD Sep 21, 2018 11:01
--- NOTE | 2018-09-21 12:13 | PDOC ---
SURGICAL PROGRESS NOTE Subjective feels better loose stools taking some clears minimal pain now Vital Signs Vital Signs Date Time Temp Pulse Resp B/P (MAP) Pulse Ox O2 Delivery O2 Flow Rate FiO2 09/21/18 11:00 97.9 54 17 121/58 (79) 98 Room Air 97.9 I&O Intake and Output 09/21/18 07:00 Intake Total 2095 ml Output Total 500 ml Balance 1595 ml Intake Oral 0 ml IV Total 2095 ml Output Urine Total 500 ml # Bowel Movements 1 General: Alert, Oriented X3, Cooperative, No acute distress Abdomen: Soft, No tenderness Labs Laboratory Tests Test 09/20/18 03:10 09/21/18 04:55 White Blood Count 11.0 x10^3/uL (4.0-11.0) 8.0 x10^3/uL (4.0-11.0) Red Blood Count 4.39 x10^6/uL (4.30-5.70) 4.15 x10^6/uL (4.30-5.70) Hemoglobin 12.5 g/dL (13.0-17.5) 11.7 g/dL (13.0-17.5) Hematocrit 37.7 % (39.0-53.0) 35.3 % (39.0-53.0) Mean Corpuscular Volume 86 fL (79-100) 85 fL (79-100) Mean Corpuscular Hemoglobin 29 pg (25-35) 28 pg (25-35) Mean Corpuscular Hemoglobin Concent 33 g/dL (31-37) 33 g/dL (31-37) Red Cell Distribution Width 13.7 % (11.5-14.5) 13.5 % (11.5-14.5) Platelet Count 268 x10^3/uL (140-400) 222 x10^3/uL (140-400) Neutrophils (%) (Auto) 78 % (31-73) 75 % (31-73) Lymphocytes (%) (Auto) 11 % (24-48) 13 % (24-48) Monocytes (%) (Auto) 10 % (0-9) 10 % (0-9) Eosinophils (%) (Auto) 1 % (0-3) 2 % (0-3) Basophils (%) (Auto) 0 % (0-3) 0 % (0-3) Neutrophils # (Auto) 8.5 x10^3uL (1.8-7.7) 6.0 x10^3uL (1.8-7.7) Lymphocytes # (Auto) 1.3 x10^3/uL (1.0-4.8) 1.1 x10^3/uL (1.0-4.8) Monocytes # (Auto) 1.1 x10^3/uL (0.0-1.1) 0.8 x10^3/uL (0.0-1.1) Eosinophils # (Auto) 0.1 x10^3/uL (0.0-0.7) 0.1 x10^3/uL (0.0-0.7) Basophils # (Auto) 0.0 x10^3/uL (0.0-0.2) 0.0 x10^3/uL (0.0-0.2) Sodium Level 135 mmol/L (136-145) 136 mmol/L (136-145) Potassium Level 3.7 mmol/L (3.5-5.1) 3.3 mmol/L (3.5-5.1) Chloride Level 100 mmol/L (98-107) 101 mmol/L (98-107) Carbon Dioxide Level 23 mmol/L (21-32) 22 mmol/L (21-32) Anion Gap 12 (6-14) 13 (6-14) Blood Urea Nitrogen 14 mg/dL (8-26) 14 mg/dL (8-26) Creatinine 1.3 mg/dL (0.7-1.3) 1.0 mg/dL (0.7-1.3) Estimated GFR (Cockcroft-Gault) 54.1 73.2 BUN/Creatinine Ratio 11 (6-20) Glucose Level 106 mg/dL (70-99) 116 mg/dL (70-99) Calcium Level 8.6 mg/dL (8.5-10.1) 8.3 mg/dL (8.5-10.1) Total Bilirubin 0.7 mg/dL (0.2-1.0) Aspartate Amino Transf (AST/SGOT) 12 U/L (15-37) Alanine Aminotransferase (ALT/SGPT) 15 U/L (16-63) Alkaline Phosphatase 76 U/L (46-116) Total Protein 6.5 g/dL (6.4-8.2) Albumin 2.5 g/dL (3.4-5.0) Albumin/Globulin Ratio 0.6 (1.0-1.7) Laboratory Tests Test 09/21/18 04:55 White Blood Count 8.0 x10^3/uL (4.0-11.0) Red Blood Count 4.15 x10^6/uL (4.30-5.70) Hemoglobin 11.7 g/dL (13.0-17.5) Hematocrit 35.3 % (39.0-53.0) Mean Corpuscular Volume 85 fL (79-100) Mean Corpuscular Hemoglobin 28 pg (25-35) Mean Corpuscular Hemoglobin Concent 33 g/dL (31-37) Red Cell Distribution Width 13.5 % (11.5-14.5) Platelet Count 222 x10^3/uL (140-400) Neutrophils (%) (Auto) 75 % (31-73) Lymphocytes (%) (Auto) 13 % (24-48) Monocytes (%) (Auto) 10 % (0-9) Eosinophils (%) (Auto) 2 % (0-3) Basophils (%) (Auto) 0 % (0-3) Neutrophils # (Auto) 6.0 x10^3uL (1.8-7.7) Lymphocytes # (Auto) 1.1 x10^3/uL (1.0-4.8) Monocytes # (Auto) 0.8 x10^3/uL (0.0-1.1) Eosinophils # (Auto) 0.1 x10^3/uL (0.0-0.7) Basophils # (Auto) 0.0 x10^3/uL (0.0-0.2) Sodium Level 136 mmol/L (136-145) Potassium Level 3.3 mmol/L (3.5-5.1) Chloride Level 101 mmol/L (98-107) Carbon Dioxide Level 22 mmol/L (21-32) Anion Gap 13 (6-14) Blood Urea Nitrogen 14 mg/dL (8-26) Creatinine 1.0 mg/dL (0.7-1.3) Estimated GFR (Cockcroft-Gault) 73.2 Glucose Level 116 mg/dL (70-99) Calcium Level 8.3 mg/dL (8.5-10.1) Assessment/Plan Ct planned tomorrow SHAUNA ENGEL BIG DATA LEAD Sep 21, 2018 12:13
[2018-09-21 15:00] VITALS: BP 132/70
[2018-09-21] MEDS: FLUCONAZOLE 400MG/200ML PREMIX 200 ML IV SCH (15:16)
[2018-09-21] MEDS ORDERED: ALBUTEROL SULFATE 2.5 MG/3 ML NEBU. NEB PRN (16:45)
[2018-09-21] MEDS: VANCOMYCIN 125 MG/2.5 ML ORAL SOLUTION. PO SCH ×2 (17:16→20:55)
[2018-09-21 19:00] VITALS: BP 147/77
[2018-09-21] MEDS: LACTOBACILLUS RHAMNOSUS GG 1 CAPSULE. PO SCH (20:55)
[2018-09-21] MEDS: ATORVASTATIN CALCIUM 40 MG TABLET. PO SCH ×2 (20:55→21:00)
[2018-09-21] MEDS: ZOLPIDEM 5 MG TABLET. PO PRN (22:12)
[2018-09-21 23:00] VITALS: BP 137/83
[2018-09-22 03:00] VITALS: BP 126/65
[2018-09-22 07:00] VITALS: BP 129/67
[2018-09-22] MEDS ORDERED: IOHEXOL 300 MG/ML 100ML VIAL. IV ONE (08:15)
[2018-09-22] MEDS ORDERED: CONTRAST GIVEN. MC PRN (08:30)
--- NOTE | 2018-09-22 08:58 | NUR ---
IP: Pt is C.diff + requiring contact plus precautions using brown sign.
[2018-09-22] MEDS: ASPIRIN 325 MG TABLET PO SCH (09:28)
[2018-09-22] MEDS: VANCOMYCIN 125 MG/2.5 ML ORAL SOLUTION. PO SCH ×4 (09:28→21:15)
[2018-09-22] MEDS: LACTOBACILLUS RHAMNOSUS GG 1 CAPSULE. PO SCH ×2 (09:28→21:15)
[2018-09-22] MEDS: PANTOPRAZOLE 40 MG TABLET.DR. PO SCH (09:29)
--- NOTE | 2018-09-22 10:43 | PDOC ---
Infectious Disease Note Subjective Subjective Doing ok. Stools are better No F/C/s/N/V/SOA/Rash Vital Sign Vital Signs Vital Signs Date Time Temp Pulse Resp B/P (MAP) Pulse Ox O2 Delivery O2 Flow Rate FiO2 09/22/18 09:10 98 Room Air 09/22/18 07:00 97.6 88 18 129/67 (87) 97.6 Physical Exam PHYSICAL EXAM CONSTITUTIONAL: He is lying down. He is comfortable. He is in no acute distress. HEENT: Pupils equal and reactive. Oral cavity: Pharynx is clear. NECK: Supple with good range of motion. LUNGS: Clear to auscultation bilaterally. HEART: S1, S2. ABDOMEN: Soft. It is less tender He has a well-healed incision. EXTREMITIES: No clubbing, cyanosis or gross edema. SKIN: Warm to touch without signs of rash. No yeast NEUROLOGIC: Alert and oriented, cooperative. IVs sites are clean. PSYCHIATRIC: Affect is pleasant. Labs Micro CT 09/18 IMPRESSION: 1. Trace amount of pneumoperitoneum, nonspecific and may be secondary to perforated viscus or peritoneal dialysis. Clinically correlate if patient had any recent dialysis session. 2. Layering high attenuating material in the distal small bowel and transverse colon may be secondary to previous ingested contrast material or blood products. Correlate if patient had oral contrast. 3. Circumferential wall thickening of the small bowel loops and right lower quadrant mesenteric Inflammatory changes may be secondary to enteritis. 06/09 ANAEROBIC-AEROBIC CULTURE Final Final report ANAEROBIC RES 1 Final Comment No anaerobic growth in 72 hours. AEROBIC CULT Final Final report AEROBIC RES 1 Final Escherichia coli Scant growth AEROBIC RES 2 Final Mixed skin courtney 1+ ANTIMICROBIAL SUSCEPTIBILITY Final Comment S = Susceptible; I = Intermediate; R = Resistant P = Positive; N = Negative MICS are expressed in micrograms per mL Antibiotic RSLT#1 RSLT#2 RSLT#3 RSLT#4 Amoxicillin/Clavulanic Acid S =4 Ampicillin I =16 Cefepime S<=0.12 Ceftriaxone S<=0.25 Cefuroxime I =16 Ciprofloxacin R>=4 Ertapenem S<=0.12 Gentamicin S<=1 Imipenem S =1 Levofloxacin R>=8 Meropenem S<=0.25 CONTINUED ON NEXT PAGE RUN DATE: 06/14/18 PAGE 2 RUN TIME: 3828 [facility] [address] [facility] [place] [address] Perez Lilly M.D., Structural Drafter SPEC: [id number] PATIENT: TITUS SHEPHERD [id number] ( Continued) Procedure Result ANTIMICROBIAL SUSCEPTIBILITY Final (continued) Piperacillin/Tazobactam S<=4 Tetracycline R>=16 Tobramycin S<=1 Trimethoprim/Sulfa R>=320 GRAM STAIN Final Final report GRAM STAIN RES 1 Final Comment Many white blood cells. GRAM STAIN RES 2 Final Comment Many gram positive rods. Objective Assessment Leukocytosis - better SHIRA PCN allergy Colitis - c-diff + 09/21 Plan Plan of Care Discont Flagyl/ Zosyn - 09/21 when C-diff + Discont Fluconazole Began po vanc 09/21 F/u CT 09/22 and Surgical interpretation. If no complications can d/c home with po Vanc for 13 days Rx written F/u ID office in 10 days D/w nursing and LOWELL PRADHAN MD Sep 22, 2018 10:43
[2018-09-22 11:00] VITALS: BP 149/64
--- NOTE | 2018-09-22 11:25 | RAD ---
CT of the abdomen and pelvis with contrast, 09/22/2018: HISTORY: Follow-up pneumoperitoneum, lymphoma Multidetector CT imaging was performed following an IV bolus injection of iodinated contrast material. No oral contrast material was administered for this study. Comparison is made to an exam from 09/18/2018. No hepatic abnormality is seen. No dense gallstones are evident. The pancreas is unremarkable. The spleen is of normal size. A right renal cyst is noted. The kidneys show no evidence of obstruction. Moderate aortoiliac calcific plaquing is present without evidence of aneurysm. No abdominal or pelvic adenopathy is seen. There is moderate sigmoid diverticulosis. The bowel loops are not dilated. There is streaky increased density in the mesenteric fat in the abdomen and upper pelvis compatible with nonspecific inflammation. The previously seen pneumoperitoneum has largely resolved. There is a small bubble of gas along the posterior inferior margin of the gallbladder which does not appear to lie within a bowel loop. There is a 2.9 cm triangular shaped fluid collection in the right lower quadrant as seen on coronal image 21 of series #4. A couple of other smaller fluid collections are seen just to the right of midline on coronal image 26 of series #4. In the absence of GI tract opacification, it is not entirely clear whether these represent extraluminal fluid collections or fluid within small bowel loops. There is a 2 cm collection of extraluminal fluid evident in the left upper quadrant on axial image 30 of series #2. IMPRESSION: 1. Resolving pneumoperitoneum. 2. Colonic diverticulosis. 3. Inflammatory changes in the mesentery with probable small extraluminal fluid collections as described above. CT follow-up is suggested to exclude developing abscesses. PQRS Compliance Statement: One or more of the following individualized dose reduction techniques were utilized for this examination: 1. Automated exposure control 2. Adjustment of the mA and/or kV according to patient size 3. Use of iterative reconstruction technique Electronically signed by: Yvon Roberts MD (09/22/2018 11:22 AM) [facility]
[2018-09-22] MEDS: AMINO AC 3%/ELECTROLYTE/GLYCER 1,000 ML IV SCH ×2 (11:30→12:17)
--- NOTE | 2018-09-22 12:08 | PDOC ---
SHAUNA ENGEL EVENTS MANAGER 09/22/18 1208: SURGICAL PROGRESS NOTE Subjective feels well no pain no nausea hungry Vital Signs Vital Signs Date Time Temp Pulse Resp B/P (MAP) Pulse Ox O2 Delivery O2 Flow Rate FiO2 09/22/18 11:00 97.9 86 18 149/64 (92) 94 Room Air 97.9 I&O Intake and Output 09/22/18 07:00 Intake Total 1700 ml Output Total 2050 ml Balance -350 ml Intake Oral 1700 ml Output Urine Total 1650 ml Stool Total 400 ml # Voids 1 General: Alert, Oriented X3, Cooperative, No acute distress Abdomen: Soft, No tenderness Labs Laboratory Tests Test 09/21/18 00:00 09/21/18 04:55 Clostridium difficile Toxin B Gene Positive (Negative) White Blood Count 8.0 x10^3/uL (4.0-11.0) Red Blood Count 4.15 x10^6/uL (4.30-5.70) Hemoglobin 11.7 g/dL (13.0-17.5) Hematocrit 35.3 % (39.0-53.0) Mean Corpuscular Volume 85 fL (79-100) Mean Corpuscular Hemoglobin 28 pg (25-35) Mean Corpuscular Hemoglobin Concent 33 g/dL (31-37) Red Cell Distribution Width 13.5 % (11.5-14.5) Platelet Count 222 x10^3/uL (140-400) Neutrophils (%) (Auto) 75 % (31-73) Lymphocytes (%) (Auto) 13 % (24-48) Monocytes (%) (Auto) 10 % (0-9) Eosinophils (%) (Auto) 2 % (0-3) Basophils (%) (Auto) 0 % (0-3) Neutrophils # (Auto) 6.0 x10^3uL (1.8-7.7) Lymphocytes # (Auto) 1.1 x10^3/uL (1.0-4.8) Monocytes # (Auto) 0.8 x10^3/uL (0.0-1.1) Eosinophils # (Auto) 0.1 x10^3/uL (0.0-0.7) Basophils # (Auto) 0.0 x10^3/uL (0.0-0.2) Sodium Level 136 mmol/L (136-145) Potassium Level 3.3 mmol/L (3.5-5.1) Chloride Level 101 mmol/L (98-107) Carbon Dioxide Level 22 mmol/L (21-32) Anion Gap 13 (6-14) Blood Urea Nitrogen 14 mg/dL (8-26) Creatinine 1.0 mg/dL (0.7-1.3) Estimated GFR (Cockcroft-Gault) 73.2 Glucose Level 116 mg/dL (70-99) Calcium Level 8.3 mg/dL (8.5-10.1) Assessment/Plan + c diff pneumoperitoneum resolving small fluid collections on CT continue abx advance to fulls will review with TONY Clements MD 09/22/18 1450: SURGICAL PROGRESS NOTE Assessment/Plan Pt seen and examined. Agree with Ms. Engel's note Pt without c/o, hina PO CT improved, small fluid collection C diff ADAT and cont abx per ID SHAUNA ENGEL APRN Sep 22, 2018 12:08 TONY BECKER MD Sep 22, 2018 14:50
[2018-09-22] MEDS: PIPERACILLIN/TAZOBACTAM 3.375 GM in IV NORMAL SALINE 50ML 50 ML IV SCH ×3 (12:17→23:10)
[2018-09-22] MEDS: PREDNISOLONE ACETATE 1% OD SCH ×2 (14:00→21:14)
[2018-09-22 15:00] VITALS: BP 135/65
[2018-09-22 19:00] VITALS: BP 170/87
[2018-09-22] MEDS: ATORVASTATIN CALCIUM 40 MG TABLET. PO SCH (21:00)
[2018-09-22 23:00] VITALS: BP 149/73
[2018-09-22] MEDS: ZOLPIDEM 5 MG TABLET. PO PRN (23:10)
[2018-09-23] VITALS (7 sets, daily range): BP systolic 130–176; BP diastolic 55–84
[2018-09-23] MEDS: AMINO AC 3%/ELECTROLYTE/GLYCER 1,000 ML IV SCH ×2 (05:06→18:09)
[2018-09-23] MEDS: PIPERACILLIN/TAZOBACTAM 3.375 GM in IV NORMAL SALINE 50ML 50 ML IV SCH ×4 (05:07→23:02)
[2018-09-23] MEDS: ACETAMINOPHEN 500 MG TABLET PO PRN ×2 (06:28→20:46)
--- NOTE | 2018-09-23 09:11 | PDOC ---
SURGICAL PROGRESS NOTE Subjective sleeping i did not awaken him d/w nursing Vital Signs Vital Signs Date Time Temp Pulse Resp B/P (MAP) Pulse Ox O2 Delivery O2 Flow Rate FiO2 09/23/18 07:00 98.5 58 18 153/81 (105) 94 Room Air 98.5 I&O Intake and Output 09/23/18 07:00 Intake Total 2040 ml Output Total 525 ml Balance 1515 ml Intake Oral 840 ml IV Total 1200 ml Output Urine Total 525 ml # Voids 6 # Bowel Movements 1 Problem List continue abx SHAUNA ENGEL DISPLAY FABRICATOR Sep 23, 2018 09:10
--- NOTE | 2018-09-23 09:39 | PDOC ---
Infectious Disease Note Subjective Subjective Comfortable, denies pain Still having a little bit of diarrhea Eating Denies F/C/S/N/V/cramps/bloating ROS ROS per HPI Vital Sign Vital Signs Vital Signs Date Time Temp Pulse Resp B/P (MAP) Pulse Ox O2 Delivery O2 Flow Rate FiO2 09/23/18 07:00 98.5 58 18 153/81 (105) 94 Room Air 98.5 Physical Exam PHYSICAL EXAM GENERAL: Propped up in bed, alert, watching TV HEENT: Pupils equal and reactive. Oral cavity: Pharynx is clear. NECK: Supple with good range of motion. LUNGS: Clear to auscultation bilaterally. HEART: S1, S2. ABDOMEN: Soft, nontender EXTREMITIES: No clubbing, cyanosis or gross edema. SKIN: Warm to touch without signs of rash. NEUROLOGIC: Alert and oriented, cooperative. Labs Lab CT A/P 1. Resolving pneumoperitoneum. 2. Colonic diverticulosis. 3. Inflammatory changes in the mesentery with probable small extraluminal fluid collections as described above. CT follow-up is suggested to exclude developing abscesses. Objective Assessment Leukocytosis - better SHIRA PCN allergy Colitis - c-diff + 4/4. Small fluid collection Plan Plan of Care Continue Zosyn and po vancomycin Supportive care Attending Co-Sign The patient was seen and interviewed as well as examined at the bedside. The chart was reviewed. The case was discussed. Agree with the plan of care. ARELIS MORLEY ON SITE COORDINATOR Sep 23, 2018 09:39 CHELLY HAM MD Sep 23, 2018 11:40
[2018-09-23] MEDS: LACTOBACILLUS RHAMNOSUS GG 1 CAPSULE. PO SCH ×2 (09:50→20:46)
[2018-09-23] MEDS: ASPIRIN 325 MG TABLET PO SCH (09:50)
[2018-09-23] MEDS: VANCOMYCIN 125 MG/2.5 ML ORAL SOLUTION. PO SCH ×4 (09:50→20:46)
[2018-09-23] MEDS: PREDNISOLONE ACETATE 1% OD SCH ×3 (09:51→20:47)
[2018-09-23] MEDS: ATORVASTATIN CALCIUM 40 MG TABLET. PO SCH (20:46)
[2018-09-23] MEDS: ZOLPIDEM 5 MG TABLET. PO PRN (23:02)
[2018-09-24 03:00] VITALS: BP 138/62
[2018-09-24] MEDS: ACETAMINOPHEN 500 MG TABLET PO PRN (03:10)
[2018-09-24] MEDS: PANTOPRAZOLE 40 MG TABLET.DR. PO SCH (06:20)
[2018-09-24] MEDS: PIPERACILLIN/TAZOBACTAM 3.375 GM in IV NORMAL SALINE 50ML 50 ML IV SCH ×4 (06:22→23:38)
[2018-09-24 07:00] VITALS: BP 162/92
[2018-09-24] MEDS: LACTOBACILLUS RHAMNOSUS GG 1 CAPSULE. PO SCH ×2 (08:11→21:02)
[2018-09-24] MEDS: ASPIRIN 325 MG TABLET PO SCH (08:11)
[2018-09-24] MEDS: VANCOMYCIN 125 MG/2.5 ML ORAL SOLUTION. PO SCH ×4 (08:11→21:03)
[2018-09-24] MEDS: PREDNISOLONE ACETATE 1% OD SCH ×3 (08:12→21:00)
--- NOTE | 2018-09-24 09:19 | PDOC ---
SURGICAL PROGRESS NOTE Subjective some intermittent sharp LLQ pains no nausea would like more to eat Vital Signs Vital Signs Date Time Temp Pulse Resp B/P (MAP) Pulse Ox O2 Delivery O2 Flow Rate FiO2 09/24/18 07:00 97.7 63 16 162/92 (115) 100 Room Air 97.7 I&O Intake and Output 09/24/18 07:00 Intake Total 2940 ml Output Total 1215 ml Balance 1725 ml Intake Oral 1440 ml IV Total 1500 ml Output Urine Total 1215 ml # Voids 2 General: Alert, Oriented X3, Cooperative, No acute distress Abdomen: Soft, No tenderness Problem List continue abx Dr Irby returns tomorrow SHAUNA ENGEL APRN Sep 24, 2018 09:19
[2018-09-24] MEDS: AMINO AC 3%/ELECTROLYTE/GLYCER 1,000 ML IV SCH ×2 (10:18→23:38)
--- NOTE | 2018-09-24 10:42 | PDOC ---
Infectious Disease Note Subjective Subjective Comfortable, denies pain No complaints/concerns voiced Soft diet Denies F/C/S/N/V/cramps/bloating ROS ROS per HPI Vital Sign Vital Signs Vital Signs Date Time Temp Pulse Resp B/P (MAP) Pulse Ox O2 Delivery O2 Flow Rate FiO2 09/24/18 08:00 Room Air 09/24/18 07:00 97.7 63 16 162/92 (115) 100 97.7 Physical Exam PHYSICAL EXAM GENERAL: Lying down, appears comfortable HEENT: Pupils equal and reactive. Oral cavity: Pharynx is clear. NECK: Supple with good range of motion. LUNGS: Clear to auscultation bilaterally. HEART: S1, S2. ABDOMEN: Soft, nontender EXTREMITIES: No clubbing, cyanosis or gross edema. SKIN: Warm to touch without signs of rash. NEUROLOGIC: Alert and oriented, cooperative. Objective Assessment Leukocytosis - better SHIRA PCN allergy Colitis - c-diff + 4/4. Small fluid collection Plan Plan of Care Continue Zosyn and po vancomycin Supportive care D/w ARELIS MORLEY Teresa WIRE COILER MACHINE OPERATOR Sep 24, 2018 10:42 CHELLY HAM MD Sep 24, 2018 10:52
[2018-09-24 11:00] VITALS: BP_SYST 142; BP_SYST 152; BP_DIAS 64; BP_DIAS 82
[2018-09-24 15:00] VITALS: BP 148/77
[2018-09-24 19:00] VITALS: BP 166/86
[2018-09-24] MEDS: ATORVASTATIN CALCIUM 40 MG TABLET. PO SCH (21:00)
[2018-09-24] MEDS: ZOLPIDEM 5 MG TABLET. PO PRN (22:29)
[2018-09-24 23:00] VITALS: BP 161/93
[2018-09-25 03:00] VITALS: BP 162/83
[2018-09-25] MEDS: PIPERACILLIN/TAZOBACTAM 3.375 GM in IV NORMAL SALINE 50ML 50 ML IV SCH (06:04)
[2018-09-25 07:00] VITALS: BP 176/83
--- NOTE | 2018-09-25 08:45 | NUR ---
SW following for discharge planning. Discussed with RN, waiting to hear if pt having a repeat CT today or not. Possibility of discharge home with no SW needs today.
[2018-09-25] MEDS: LACTOBACILLUS RHAMNOSUS GG 1 CAPSULE. PO SCH (09:00)
[2018-09-25] MEDS: VANCOMYCIN 125 MG/2.5 ML ORAL SOLUTION. PO SCH ×2 (09:00→14:56)
[2018-09-25] MEDS: ASPIRIN 325 MG TABLET PO SCH (09:00)
[2018-09-25] MEDS: PREDNISOLONE ACETATE 1% OD SCH ×2 (09:38→14:00)
--- NOTE | 2018-09-25 09:42 | PDOC ---
Infectious Disease Note Subjective Subjective feeling good, no complaints ROS ROS no n/v/d/sob/abd pain Vital Sign Vital Signs Vital Signs Date Time Temp Pulse Resp B/P (MAP) Pulse Ox O2 Delivery O2 Flow Rate FiO2 09/25/18 07:00 98.5 65 18 176/83 (114) 97 Room Air 98.5 Physical Exam PHYSICAL EXAM GENERAL: Lying down, appears comfortable HEENT: Pupils equal and reactive. Oral cavity: Pharynx is clear. NECK: Supple with good range of motion. LUNGS: Clear to auscultation bilaterally. HEART: S1, S2. ABDOMEN: Soft, nontender EXTREMITIES: No clubbing, cyanosis or gross edema. SKIN: Warm to touch without signs of rash. NEUROLOGIC: Alert and oriented, cooperative. Objective Assessment Leukocytosis - better SHIRA PCN allergy Colitis - c-diff + 4/4. Small fluid collection Plan Plan of Care d/c Zosyn and cont po vancomycin for 1 wk Supportive care recurrence possibility discussed probiotics and or yogurt D/w CHELLY HAM MD Sep 25, 2018 09:42
--- NOTE | 2018-09-25 11:26 | PDOC ---
SURGICAL PROGRESS NOTE Subjective feels well tolerating diet Vital Signs Vital Signs Date Time Temp Pulse Resp B/P (MAP) Pulse Ox O2 Delivery O2 Flow Rate FiO2 09/25/18 07:00 98.5 65 18 176/83 (114) 97 Room Air 98.5 I&O Intake and Output 09/25/18 07:00 Intake Total 620 ml Output Total 200 ml Balance 420 ml Intake Oral 620 ml Output Urine Total 200 ml # Voids 1 General: Alert, Oriented X3, Cooperative, No acute distress Abdomen: Soft, No tenderness Problem List c diff treatment will review with Dr Irby--possible home today SHAUNA ENGEL APRN Sep 25, 2018 11:26
--- NOTE | 2018-09-25 14:16 | DISCH ---
DISCHARGE INSTRUCTIONS Condition on Discharge Condition on Discharge: Stable Activity After Discharge Activity Instructions for Disc: Activity as tolerated Lifting Instructions after Dis: No heavy lifting Weight Bearing Status after Di: As tolerated Diet after Discharge Diet after Discharge: Regular Follow-Up Follow up with: as outpatient for repeat scan Treatment/Equipment after DC Adaptive Equipment Issued: None YARELI ALEXANDER MD Sep 25, 2018 14:16
[2018-09-25] MEDS: AMINO AC 3%/ELECTROLYTE/GLYCER 1,000 ML IV SCH (14:30)
--- NOTE | 2018-09-25 15:12 | NUR ---
Pt was discharged to home at 1510 today in stable condition with all personal belongings after reviewing all pertinent information including education, medications, follow up and at home care. Pt was escorted by staff and driven home by his .
--- NOTE | 2018-10-18 14:13 | PDOC3 ---
Discharge Summary Visit Information Date of Admission: Sep 18, 2018 Date of Discharge: Sep 25, 2018 Admitting Diagnosis Comment: pneumoperitoneum Final Diagnosis same Brief Hospital Course Allergies Allergies Coded Allergies Type Severity Reaction Last Updated Verified Penicillins Allergy Intermediate Hives 06/21/18 Yes Lab Results see record Brief Hospital Course Mr. Pate is a 73 old gentleman who presented with abdominal pain. Discharge Information Condition at Discharge: Improved Follow Up: As Needed Disposition/Orders: D/C to Home Scheduled Ascorbic Acid (Ascorbic Acid) 500 Mg Tablet, 500 MG PO DAILY for supplement, (Reported) Entered as Reported by: TANIYA LOPEZ on 01/28/161720 Last Action: HELD on 09/19/181043 by YARELI ALEXANDER Aspirin (Aspirin) 325 Mg Tablet, 1 TAB PO DAILY for blood thinner, #30 Ref 5 (Reported) Entered as Reported by: TANIYA LOPEZ on 01/28/161720 Last Action: Continued on 09/19/181043 by YARELI ALEXANDER Atorvastatin Calcium (Lipitor) 40 Mg Tablet, 1 TAB PO QHS for lowers shira sterol, #90 Ref 1 (Reported) Entered as Reported by: TANIYA LOPEZ on 01/28/161720 Last Action: Continued on 09/19/181043 by YARELI ALEXANDER Budesonide/Formoterol Fumarate (Symbicort 160-4.5 Mcg Inhaler) 10.2 Gm Hfa.aer.ad, 2 PUFF IH BID for COPD, #10.6 Ref 3 (Reported) Entered as Reported by: TANIYA LOPEZ on 01/28/161720 Last Action: Converted on 09/19/181043 by YARELI ALEXANDER Cholecalciferol (Vitamin D3) (Vitamin D-3) 2,000 Unit Capsule, 3,000 UNIT PO DAILY for supplement, (Reported) Entered as Reported by: TANIYA LOPEZ on 01/28/161720 Last Action: HELD on 09/19/181043 by YARELI ALEXANDER Garlic (Garlic) 100 Mg Tablet, 100 MG PO DAILY for supplement, (Reported) Entered as Reported by: TANIYA LOPEZ on 01/28/161720 Last Action: HELD on 09/19/181043 by YARELI ALEXANDER Gluc 2KCL/Chondr/Avery Hy/Hy Ac (Glucosamine & Chondroitin Cap) 1 Each Capsule, 2 EACH PO DAILY for supplement, (Reported) Entered as Reported by: TANIYA LOPEZ on 01/28/161720 Last Action: Converted on 09/19/181043 by YARELI ALEXANDER Lysine (L-Lysine) 500 Mg Tablet, 500 MG PO DAILY for supplement, (Reported) Entered as Reported by: TANIYA LOPEZ on 01/28/161720 Last Action: HELD on 09/19/181043 by YARELI ALEXANDER Multivitamin (Multi-Day Vitamins) 1 Each Tablet, 1 TAB PO DAILY for supplement, #30 (Reported) Entered as Reported by: TANIYA LOPEZ on 01/28/161720 Last Action: HELD on 09/19/181043 by YARELI ALEXANDER Omeprazole Magnesium (Prilosec Otc) 20 Mg Tablet., 1 TAB PO QODAY for acid reflux, #30 Ref 3 (Reported) Entered as Reported by: TANIYA LOPEZ on 01/28/161720 Last Action: Converted on 09/19/181043 by YARELI ALEXANDER Saw Tenino Fruit (Saw Tenino) 450 Mg Capsule, 2 CAP PO DAILY for supplement, (Reported) Entered as Reported by: TANIYA LOPEZ on 01/28/161720 Last Action: Converted on 09/19/181043 by YARELI ALEXANDER Tiotropium [place] (Spiriva) 18 Mcg Cap.w.dev, 1 CAP IH DAILY for COPD, #30 Ref 3 (Reported) Entered as Reported by: TANIYA LOPEZ on 01/28/161720 Last Action: Converted on 09/19/181043 by YARELI ALEXANDER Ubidecarenone (Co Q-10) 200 Mg Capsule, 200 MG PO DAILY for supplement, (R eported) Entered as Reported by: TANIYA LOPEZ on 01/28/161720 Last Action: HELD on 09/19/181043 by YARELI ALEXANDER Vancomycin Hcl (Vancocin Hcl) 250 Mg Capsule, 500 MG PO QID for infection, (Reported) Entered as Reported by: LINA TONEY on 09/29/18 1020 Vit C/Vit E/Lutein/Min/Round O-3 (Ocuvite Softgel) 1 Each Capsule, 1 EACH PO DAILY for supplement, (Reported) Entered as Reported by: TANIYA LOPEZ on 01/28/161720 Last Action: HELD on 09/19/181043 by YARELI CATHERINE Vitamin B Complex (B Complete) 1 Each Tablet, 1 EACH PO DAILY for supplement, (Reported) Entered as Reported by: TANIYA LOPEZ on 01/28/16 1721 Last Action: HELD on 09/19/181043 by YARELI ALEXANDER Scheduled PRN Hydrocodone Bit/Acetaminophen (Hydrocodone-Apap 5-325 ) 1 Each Tablet, 1 TAB PO PRN Q6HRS PRN for MODERATE - SEVERE PAIN, #20 Ref 0 Prescribed by: Felisa Medrano on 06/27/18 0907 Last Action: HELD on 09/19/181043 by YARELI ALEXANDER Zolpidem Tartrate (Ambien) 5 Mg Tablet, 1 TAB PO PRN QHS PRN for INSOMNIA, October X1, #30 Ref 2 (Reported) Entered as Reported by: MISTI COLE on 06/19/182000 Last Action: Continued on 09/19/181043 by YARELI BUSTOS MD October 18, 2018 14:13
== END 2018-09-25 15:10 | disposition home or self-care (01) | DRG 371 ==
LOC: 4 NORTH 17:42
PROVIDERS: ADMIT Surgery; ATTEND Surgery
DX: A04.72 Enterocolitis due to Clostridium difficile, not specified as recurrent (principal); E43 Unspecified severe protein-calorie malnutrition; N17.9 Acute kidney failure, unspecified; R65.10 Systemic inflammatory response syndrome (SIRS) of non-infectious origin without acute organ dysfunction; K66.8 Other specified disorders of peritoneum; Z88.0 Allergy status to penicillin; Z68.24 Body mass index [BMI] 24.0-24.9, adult; E78.5 Hyperlipidemia, unspecified; K21.9 Gastro-esophageal reflux disease without esophagitis; M19.90 Unspecified osteoarthritis, unspecified site; Z16.23 Resistance to quinolones and fluoroquinolones; Z16.29 Resistance to other single specified antibiotic; Z82.49 Family history of ischemic heart disease and other diseases of the circulatory system; Z86.73 Personal history of transient ischemic attack (TIA), and cerebral infarction without residual deficits; Z87.01 Personal history of pneumonia (recurrent); Z90.49 Acquired absence of other specified parts of digestive tract; Z79.899 Other long term (current) drug therapy
CPT/HCPCS: 36415; 71046; 74177; 80048; 80053; 83605; 85007; 85025; 87493; 94760; J1450; J1956; J2543; J3490; J7030; Q9967; 97110; 97116; 97530

== ENCOUNTER 2018-09-29 10:00 | Outpatient (CLI) | payer OTHER ==
[~2018-09-29] VITALS: Ht 182.9 cm; Wt 81.6 kg
[2018-09-29] MEDS ORDERED: VANC250C11 PO (10:20)
[2018-09-29 10:26] VITALS: BP 146/84
[2018-09-29 11:22] LABS: PROTHROMBIN TIME PATIENT 12.7 SEC (11.7-14.0)
[2018-09-29 11:23] LABS: CALCIUM 9.2 mg/dL (8.5-10.1); CREATININE 1.2 mg/dL (0.7-1.3); GFR 59.3; POTASSIUM 4.6 mmol/L (3.5-5.1)
[2018-09-29 11:44] LABS: BASO # 0.1 x10^3/uL (0.0-0.2); BASO % 1 % (0-3); EOS # 0.2 x10^3/uL (0.0-0.7); EOS % 2 % (0-3); HEMATOCRIT 40.3 % (39.0-53.0); HEMOGLOBIN 13.5 g/dL (13.0-17.5); LYMPH # 1.6 x10^3/uL (1.0-4.8); LYMPH % 15 % (24-48); MEAN CORPUSCULAR HEMOGLOBIN 29 pg (25-35); MEAN CORPUSCULAR HGB CONC 34 g/dL (31-37); MEAN CORPUSCULAR VOLUME 86 fL (79-100); MONO # 0.8 x10^3/uL (0.0-1.1); MONO % 8 % (0-9); NEUT # 7.6 x10^3uL (1.8-7.7); NEUT % 74 % (31-73); PLATELET COUNT 384 x10^3/uL (140-400); RED BLOOD COUNT 4.71 x10^6/uL (4.30-5.70); RED CELL DISTRIBUTION WIDTH 14.2 % (11.5-14.5); WHITE BLOOD COUNT 10.2 x10^3/uL (4.0-11.0)
--- NOTE | 2018-09-29 11:57 | NUR ---
Discharge Note: TITUS SHEPHERD Discharge instructions and discharge home medications reviewed with Patient and a copy given. All questions have been answered and understanding verbalized. The following instructions and handouts were given: no information needed Discontinued lines and drains: Peripheral IV intact. Patient discharged to Home or Self Care withSpousevia Ambulated Nothing to drain. Dr. Irby was paged and came to [facility] to see patient prior to patient leaving facility.
--- NOTE | 2018-10-31 15:46 | RAD ---
CT Abdomen and Pelvis without contrast History: Abdominal abscess Technique: Noncontrast CT imaging was performed of the abdomen and pelvis. Multiplanar images are reviewed. Exposure: One or more of the following individualized dose reduction techniques were utilized for this examination: 1. Automated exposure control 2. Adjustment of the mA and/or kV according to patient size 3. Use of iterative reconstruction technique. Comparison: September 22, 2018 Findings: While the exam was performed September 29, 2018, there is no report available, resubmitted for dictation on 10/31/2018. There is no abnormality of the limited visualized lung bases. There is again cystic focus underlying skin surface of the ventral superior abdomen centrally about 2.7 cm transverse by 1.1 cm AP. There is no hydronephrosis of either kidney. There is 2.1 cm likely cyst projecting anteriorly from the right kidney. There is no adrenal nodularity. Gallbladder is present without obvious intraluminal abnormality by CT. No obvious focal abnormality is identified of the liver, spleen, pancreas allowing for noncontrast technique. There is atherosclerotic calcification of the abdominal aorta and iliac arteries. Evaluation of bowel is limited without oral contrast. There is persistent long segment mild small bowel wall thickening although decreased, adjacent hazy and strandy inflammatory type change also decreased. There is again diverticulosis greatest of the sigmoid colon not associated with new significant adjacent inflammatory-type change. No new extraluminal pocket of fluid is identified, previously seen small focus of extraluminal fluid in the right pelvic region not clearly demonstrated on this noncontrast exam. There is no new free air. There is multilevel lumbar facet degenerative change. There is mild gas distention of the rectum. Impression: 1. There is persistent although decreased long segment small bowel wall thickening as may be related to enteritis. There is no new extraluminal fluid collection or free air, previously seen small pocket of fluid in the right pelvis not clearly seen on this noncontrast exam. There is again colonic diverticulosis greatest of the sigmoid colon. 2. There is again right renal cyst. Electronically signed by: Po Raya MD (10/31/2018 3:43 PM) [facility]
== END 2018-09-29 12:01 | disposition home or self-care (01) ==
LOC: INTRAD 10:00
PROVIDERS: ATTEND Surgery
DX: K57.30 Diverticulosis of large intestine without perforation or abscess without bleeding (principal); N28.1 Cyst of kidney, acquired; Z88.0 Allergy status to penicillin; Z79.01 Long term (current) use of anticoagulants
CPT/HCPCS: 36415; 74150; 80048; 85025; 85610; 85730

== ENCOUNTER → 2021-06-29 | Outpatient (CLI) | payer MEDICARE ==
[2021-06-23 15:00] VITALS: BP 136/74
[~2021-06-29] MED LIST changes: +ASPI-630 PO; +BREO ELLIPTA 11 EACH IH; +CLIN-94 PO; -CLIN300C8 PO; -LYSI500T PO; +LYSI500T8 PO; +REGADENOSON 0.4 MG/5 ML DISP.SYRIN. IV ONE; +VANC250C11 PO
--- NOTE | 2021-06-30 11:04 | RAD ---
MR#: [id number] Date of Study: 06/29/2021 Ordering Physician: GILES BRANDT, Referring Physician: ERIKA LUX Tech: RT Yoana (R) (N) APPROVED REPORT Test Type: Pharmacological Stress Nurse/Tech: Umesh Joseph RN Test Indications: chest pain Cardiac History: COPD, smoker Medications: See Electronic Medical Record Medical History: See Electronic Medical Record Resting ECG: SR Resting Heart Rate: 66 bpm Resting Blood Pressure: 130/75mmHg Pretest Chest Pain: None Nurse/Tech Notes Lungs CTA, S1S2 Consent: The procedure was explained to the patient in lay terms. Informed consent was witnessed. Damián eout was entered into [employer]. History and Stress Test performed by ADONIS Coleman, NESTOR (R) (N) Pharm. Details Pharmacologic stress testing was performed using 0.4mg per 5ml of regadenoson given intravenously ove r 7-10 seconds. Stress Symptoms No chest pain or symptoms. POST EXERCISE Reason for Termination: Infusion complete Max HR: 84 bpm Max Blood Pressure: 130/75mmHg Blood Pressure response to exercise: Normal blood pressure response during stress. Heart Rate response to exercise: normal response Chest Pain: No. Arrhythmia: No. ST Change: No. INTERPRETATION Stress EKG Conclusion: Baseline EKG showed sinus rhythm. No ischemic changes at peak stress. No arr hythmias. Imaging Protocol IMAGE PROTOCOL: Rest Tc-99m/stress Tc-99m 1 day Rest: Stress: Viability: Radiopharm.Tc99m ElpdyzjoqEw94t Sestamibi Pqdd29eWw 31mCi Duration 15min. 10min. Img Date 06/29/2021 06/29/2021 Inj-Img Eogy91vij. 60min. Rest Admin Site:IV - Right AntecubitalAdministrator:ADONIS Coleman ARRT (R)(N) Stress Admin Site: IV - Right AntecubitalAdministrator: ADONIS Coleman ARRT (R)(N) STRESS DATA End Diast. Vol.85.0mlAv. Heart Rate63.0bpm End Syst. Vol.27.0mlCO Index BSA0.0L/min Myocardial Dyab546.0gEject. Xezeiwdu39.0% Stress Rates Pk. Fill Rate1.93EDV/secLVtime Pk. Fill 290.47msec Pk. Empty Rate3.60ESV/secLVtime Pk. Qszrp033.01msec 1/3 Pk. Fill1.08EDV/sec Stress Scores Regional WT0.00Summed WT0.00 Regional WM0.00Summed WM4.00 LV Perfusion Scintigraphic images showed fixed defect involving the inferior wall, most probably diaphragmatic att enuation artifact based on normal wall motion. No other fixed or reversible defects were seen. Wall Motion Normal left ventricular systolic function with ejection fraction calculated at 68%. LV Perf. Quant 17 Seg. SSS10.00 17 Seg. SRS12.00 17 Seg. SDS1.00 Stress Defect Extent (% LAD)0.00Rest Defect Extent (% LAD)0.00Rev. Defect Extent (% LAD)0.00 Stress Defect Extent (% LCX) 30.00Rest Defect Extent (% LCX)21.30Rev. Defect Extent (% LCX)0.00 Stress Defect Extent (% RCA)48.90Rest Defect Extent (% RCA)65.60Rev. Defect Extent (% RCA)0.00 Stress Defect Extent (% BAN)19.10Rest Defect Extent (% BAN)23.90Rev. Defect Extent (% BAN)0.00 Conclusion 1. Regadenoson cardioisotope stress test showed diaphragmatic attenuation artifact without any eviden ce of ischemia or infarct. 2. Normal left ventricular systolic function with ejection fraction calculated at 68%. 3. Low risk for cardiac events. Signed by : Giles Brandt, Electronically Approved : 06/30/2021 11:04:10
== END ==
LOC: NM 09:05
PROVIDERS: ATTEND Internal Medicine Cardiovascular Disease
DX: R07.9 Chest pain, unspecified (principal)
CPT/HCPCS: 78452; 93017; A9500; J2785